=== PATIENT | female | born 1995 | race Caucasian/White ===

== ENCOUNTER → 2017-08-09 | Outpatient (CLI) | payer OTHER ==
[2017-08-09 18:08] LABS: BASO % 0.2 %; BASO ABS # 0.01 K/uL (0-0.2); EOS % 1.3 %; HEMATOCRIT 37.4 % (37-47); IG% 0.2 %; LYMPH % 35.5 %; LYMPH ABS # 2.12 K/uL (1.2-3.4); MEAN CELL VOLUME 89.7 fL (80-100); MEAN CORPUSCULAR HEMOGLOBIN 29.7 pg (25-34); MEAN CORPUSCULAR HGB CONC 33.2 g/dl (32-36); MEAN PLATELET VOLUME 10.9 fL (7.4-10.4); MONO % 7.2 %; NEUT % 55.6 %; PLATELET COUNT 222 K/uL (130-400); RED BLOOD COUNT 4.17 M/uL (4.2-5.4); WHITE BLOOD COUNT 5.98 K/uL (4.8-10.8)
[2017-08-09 18:09] LABS: COMPLETE YES
== END | disposition home or self-care (01) ==
LOC: C.LABPVFM 13:37
PROVIDERS: ATTEND Family Medicine Adult Medicine
DX: L29.9 Pruritus, unspecified (principal)